=== PATIENT | female | born 1995 | race African-American/Black ===

== ENCOUNTER → 2021-01-01 | Outpatient (REF) | payer OTHER ==
[2021-01-01 17:27] LABS: BASO % 0.3 % (0.0-1.0); EOS # 0.1 10^3/uL (0.0-0.5); EOS % 1.1 % (0.0-3.0); HEMOGLOBIN 12.5 g/dl (12.0-15.5); LYMPH # 2.5 10^3/uL (1.5-5.0); LYMPH % 35.3 % (24.0-44.0); MEAN CORPUSCULAR HEMOGLOBIN 26.7 pg (27.0-33.0); MEAN CORPUSCULAR HGB CONC 32.1 g/dl (32.0-36.5); MEAN CORPUSCULAR VOLUME 83.2 fl (80.0-96.0); MONO # 0.5 10^3/uL (0.0-0.8); MONO % 6.9 % (2.0-8.0); NEUTROPHILS % 55.7 % (36.0-66.0); PLATELET COUNT, AUTOMATED 325 10^3/uL (150-450); RED BLOOD COUNT 4.69 10^6/uL (4.00-5.40); WHITE BLOOD COUNT 7.1 10^3/uL (4.0-10.0)
[2021-01-01 19:12] LABS: ALBUMIN 3.7 GM/DL (3.2-5.2); ALT/SGPT 30 U/L (12-78); BILIRUBIN,TOTAL 0.3 MG/DL (0.2-1.0); BLOOD UREA NITROGEN 13 MG/DL (7-18); CALCIUM LEVEL 9.2 MG/DL (8.5-10.1); CARBON DIOXIDE LEVEL 28 MEQ/L (21-32); CHLORIDE LEVEL 108 MEQ/L (98-107); CREATININE FOR GFR 0.93 MG/DL (0.55-1.30); FREE T4 0.82 NG/DL (0.76-1.46); GLOMERULAR FILTRATION RATE > 60.0 (>60); GLUCOSE, FASTING 91 MG/DL (70-100); IRON (FE) 44 UG/DL (50-170); PERCENT SATURATION 10.9 % (13.2-45.0); POTASSIUM SERUM 4.1 MEQ/L (3.5-5.1); SODIUM LEVEL 141 MEQ/L (136-145); TOTAL IRON BINDING CAPACITY 403 UG/DL (250-450); TOTAL PROTEIN 7.2 GM/DL (6.4-8.2)
== END ==
LOC: M WUC 15:43
PROVIDERS: ATTEND Physician Assistant
DX: R51.9 Headache, unspecified (principal)

== ENCOUNTER 2021-02-07 13:11 | Emergency (ER) | payer OTHER, SELFPAY ==
[~2021-02-07] VITALS: Ht 154.9 cm; Wt 101.4 kg
[2021-02-07 13:14] VITALS: BP 124/68
[2021-02-07] MEDS ORDERED: EUTH25TA (13:20)
[2021-02-07 15:31] LABS: FREE T4 1.02 NG/DL (0.76-1.46)
[2021-02-07] MEDS ORDERED: FLUCONAZOLE 50MG TABLET PO ONE (16:10)
[2021-02-07 16:27] LABS: GC DNA AMPLIFICATION NEGATIVE (NEGATIVE)
[2021-02-07] MEDS ORDERED: METR-265 PO (16:34)
[2021-02-07 17:03] LABS: HCG, SERUM QUANTITATIVE < 1.0 MIU/ML
[2021-02-09 10:23] LABS: HEPATITIS B SURFACE ANTIBODY NEGATIVE (POSITIVE)
[2021-02-09 10:33] LABS: HEPATITIS B SURFACE ANTIGEN NEGATIVE (NEGATIVE)
[2021-02-09 11:01] LABS: HEPATITIS C VIRUS ABY INDEX 0.1 INDEX (<0.8)
[2021-02-09 11:02] LABS: HIV 1&2 SCREEN CENTAUR NEGATIVE (NEGATIVE)
== END 2021-02-07 17:10 | disposition home or self-care (01) ==
LOC: M ED 13:11
DX: N76.0 Acute vaginitis (principal); R10.2 Pelvic and perineal pain; Z86.19 Personal history of other infectious and parasitic diseases; E03.9 Hypothyroidism, unspecified; Z79.890 Hormone replacement therapy

== ENCOUNTER 2021-08-22 21:33 | Emergency (ER) | payer OTHER, SELFPAY ==
[~2021-08-22] VITALS: Ht 154.9 cm; Wt 104.9 kg
[~2021-08-22 21:33] MED LIST: EUTH25TA; METR-265 PO
[2021-08-23 02:18] LABS: BASO % 0.3 % (0.0-1.0); EOS # 0.1 10^3/uL (0.0-0.5); EOS % 0.7 % (0.0-3.0); HEMATOCRIT 39.7 % (36.0-47.0); HEMOGLOBIN 12.9 g/dl (12.0-15.5); LYMPH # 3.2 10^3/uL (1.5-5.0); LYMPH % 34.3 % (24.0-44.0); MEAN CORPUSCULAR HEMOGLOBIN 27.8 pg (27.0-33.0); MEAN CORPUSCULAR HGB CONC 32.5 g/dl (32.0-36.5); MEAN CORPUSCULAR VOLUME 85.6 fl (80.0-96.0); MONO # 0.8 10^3/uL (0.0-0.8); MONO % 8.9 % (2.0-8.0); NEUTROPHILS # 5.1 10^3/uL (1.5-8.5); NEUTROPHILS % 55.5 % (36.0-66.0); PLATELET COUNT, AUTOMATED 318 10^3/uL (150-450); RED BLOOD COUNT 4.64 10^6/uL (4.00-5.40); WHITE BLOOD COUNT 9.2 10^3/uL (4.0-10.0)
[2021-08-23 03:04] VITALS: BP 124/79
== END 2021-08-23 04:00 | disposition home or self-care (01) ==
LOC: M ED 21:33
DX: Z32.01 Encounter for pregnancy test, result positive (principal); N93.9 Abnormal uterine and vaginal bleeding, unspecified; E03.9 Hypothyroidism, unspecified; Z79.890 Hormone replacement therapy

== ENCOUNTER → 2021-08-25 | Outpatient (CLI) | payer OTHER | LOC: M LAB 10:42 | PROVIDERS: ATTEND Physician Assistant | DX: O46.90 Antepartum hemorrhage, unspecified, unspecified trimester (principal) ==

== ENCOUNTER → 2021-09-07 | Outpatient (CLI) | payer OTHER | LOC: M WHC 09:00 | PROVIDERS: ATTEND Nurse Practitioner Women's Health | DX: Z34.91 Encounter for supervision of normal pregnancy, unspecified, first trimester (principal); Z3A.01 Less than 8 weeks gestation of pregnancy ==

== ENCOUNTER 2024-05-08 21:37 | Emergency (ER) | payer OTHER ==
[~2024-05-08] VITALS: Ht 154.9 cm; Wt 108.0 kg
[2024-05-09] MEDS ORDERED: BENZ1LOZ9 PO (00:08)
[2024-05-09] MEDS: CEPACOL LOZENGE MT ONE (00:21)
[2024-05-09 00:25] VITALS: BP 134/67; TEMP 97.7; O2SAT 97
== END 2024-05-09 00:25 | disposition home or self-care (01) ==
LOC: M ED 21:37
DX: J02.9 Acute pharyngitis, unspecified (principal); E03.9 Hypothyroidism, unspecified; Z79.899 Other long term (current) drug therapy